=== PATIENT | male | born 1955 | race Caucasian/White ===

== ENCOUNTER 2017-07-30 17:16 | Inpatient (IN) | payer BC ==
[~2017-07-30] VITALS: Ht 393.7 cm; Wt 72.0 kg
[2017-07-30 18:09] LABS: HEMATOCRIT 38.8 % (38.0-50.0); HEMOGLOBIN 12.8 G/DL (12.5-16.6); MCH 28.3 PG (29.0-34.0); MCV 85.7 FL (86-99); PLATELET COUNT 359 K/uL (156-360); RBC DIS.WIDTH-CV 12.4 % (11.8-14.6); RBC DIS.WIDTH-SD 38.9 % (39-53); RED BLOOD COUNT 4.53 M/uL (4.00-5.50); WHITE BLOOD COUNT 19.1 K/uL (4.1-10.2)
[2017-07-30 18:15] LABS: CHLORIDE 104 mEq/L (99-109); POTASSIUM 4.1 mEq/L (3.7-5.4); SODIUM 142 mEq/L (136-147)
[2017-07-30 18:17] LABS: GLUCOSE 105 mg/dL (70-99)
[2017-07-30 18:21] LABS: CREATININE 0.7 mg/dL (0.6-1.3); GFR ESTIMATE (CALCULATED) > 59 mL/min/ (58.99-99999)
[2017-07-30 18:22] LABS: UREA NITROGEN (BUN) 12 mg/dL (9-23)
[2017-07-30 18:28] LABS: TROP-I INTERPRETATION NEGATIVE; TROPONIN-I 0.02 ng/mL (0.0-0.30)
[2017-07-30] MEDS ORDERED: AMOXICILLIN500 MG PO (20:11)
[2017-07-30] MEDS ORDERED: ATENOLOL25 MG PO (20:11)
[2017-07-30] MEDS ORDERED: CHERATUSSIN AC473 ML PO (20:12)
[2017-07-30] MEDS ORDERED: SYMBICORT60 INHALAT IH (20:13)
[2017-07-30] MEDS ORDERED: VENTOLIN HFA18 GM IH (20:15)
[2017-07-30] MEDS ORDERED: ASCORBIC ACID500 M3 PO (20:18)
[2017-07-30] MEDS ORDERED: ASPIRIN325 MG PO (20:19)
[2017-07-30 22:55] VITALS: BP 145/80
[2017-07-30 23:11] LABS: ALBUMIN 3.8 g/dL (3.2-4.8)
[2017-07-30 23:14] LABS: TOTAL PROTEIN 6.2 g/dL (6.4-8.3)
[2017-07-30 23:15] LABS: TOTAL BILIRUBIN 0.6 mg/dL (0.0-1.0)
[2017-07-30 23:16] LABS: ALKALINE PHOSPHATASE 97 IU/L (3-129)
[2017-07-30 23:19] LABS: AST (GOT) 18 IU/L (2-34); DIRECT BILIRUBIN 0.4 mg/dL (0.0-0.3)
[2017-07-30 23:20] LABS: ALT (GPT) 22 IU/L (3-49)
[2017-07-31] VITALS (7 sets, daily range): BP systolic 121–151; BP diastolic 79–84
[2017-07-31 06:32] LABS: BASOPHIL (%) 0.2 % (0-1); BASOPHIL COUNT 0.1 K/uL (0-0.1); EOSINOPHIL (%) 0.3 % (0-5); EOSINOPHIL COUNT 0.1 K/uL (0-0.3); HEMATOCRIT 37.1 % (38.0-50.0); HEMOGLOBIN 11.9 G/DL (12.5-16.6); LYMPHOCYTE (%) 7.9 % (15-42); LYMPHOCYTE COUNT 1.6 K/uL (1.0-2.8); MCH 27.5 PG (29.0-34.0); MCHC 32.1 G/DL (30.0-36.0); MCV 85.9 FL (86-99); MONOCYTE (%) 9.6 % (3-12); MONOCYTE COUNT 1.9 K/uL (0-0.8); NEUTROPHIL COUNT 16.2 K/uL (1.8-6.4); PLATELET COUNT 337 K/uL (156-360); RBC DIS.WIDTH-CV 12.5 % (11.8-14.6); RBC DIS.WIDTH-SD 39.2 % (39-53); RED BLOOD COUNT 4.32 M/uL (4.00-5.50); WHITE BLOOD COUNT 20.1 K/uL (4.1-10.2)
[2017-07-31 07:02] LABS: CHLORIDE 104 MEQ/L (99-109); CREATININE 0.7 MG/DL (0.6-1.3); GFR ESTIMATE (CALCULATED) > 59 mL/min/ (58.99-99999); GLUCOSE 98 mg/dL (70-99); POTASSIUM 3.9 MEQ/L (3.7-5.4); SODIUM 141 MEQ/L (136-147); UREA NITROGEN (BUN) 9 mg/dL (9-23)
[2017-08-01 06:08] LABS: BASOPHIL (%) 0.1 % (0-1); EOSINOPHIL (%) 0 % (0-5); HEMOGLOBIN 11.6 G/DL (12.5-16.6); LYMPHOCYTE (%) 6.4 % (15-42); LYMPHOCYTE COUNT 0.6 K/uL (1.0-2.8); MCH 27.3 PG (29.0-34.0); MCHC 32.2 G/DL (30.0-36.0); MCV 84.7 FL (86-99); MONOCYTE (%) 1.6 % (3-12); MONOCYTE COUNT 0.1 K/uL (0-0.8); NEUTROPHIL (%) 90.9 % (45-76); NEUTROPHIL COUNT 7.8 K/uL (1.8-6.4); PLATELET COUNT 311 K/uL (156-360); RBC DIS.WIDTH-CV 12.2 % (11.8-14.6); RED BLOOD COUNT 4.25 M/uL (4.00-5.50); WHITE BLOOD COUNT 8.6 K/uL (4.1-10.2)
[2017-08-01 06:20] LABS: CHLORIDE 107 MEQ/L (99-109); CREATININE 0.6 MG/DL (0.6-1.3); GFR ESTIMATE (CALCULATED) > 59 mL/min/ (58.99-99999); POTASSIUM 3.9 MEQ/L (3.7-5.4); SODIUM 144 MEQ/L (136-147); UREA NITROGEN (BUN) 14 mg/dL (9-23)
[2017-08-01 06:28] LABS: GLUCOSE 169 mg/dL (70-99)
[2017-08-01 07:20] VITALS: BP 151/80
[2017-08-01 15:45] VITALS: BP 129/79
[2017-08-01 23:47] VITALS: BP 147/80
[2017-08-02 07:40] VITALS: BP 134/83
[2017-08-02] MEDS ORDERED: CEFTRIAXONE2 G1 IV (08:17)
[2017-08-02] MEDS ORDERED: AZITHROMYCIN500 M1 PO (08:18)
[2017-08-02] MEDS ORDERED: BENZONATATE100 MG PO (08:19)
[2017-08-02] MEDS ORDERED: MEDROL DOSEPAK4 MG PO (08:19)
[2017-08-02 20:37] LABS: M. pneumoniae Ab, IgG <=0.90 (<=0.90); M. pneumoniae Ab, IgM 9 U/mL (<770)
== END 2017-08-02 11:51 | disposition home or self-care (01) | DRG 871 ==
LOC: EME 17:16 → 2EAST 21:21 → EDOF 21:21 → ENRESERV 21:26 → 2EAST 22:19 → ENPENDDIS 08-02 → 2EAST 08-02 11:51
PROVIDERS: Emergency Medicine; Hospitalist; Physician Assistant; Student in an Organized Health Care Education/Training Program
DX: A41.9 Sepsis, unspecified organism (principal); J12.9 Viral pneumonia, unspecified; J96.01 Acute respiratory failure with hypoxia; I10 Essential (primary) hypertension; R61 Generalized hyperhidrosis; D86.9 Sarcoidosis, unspecified; I89.8 Other specified noninfective disorders of lymphatic vessels and lymph nodes; Z82.49 Family history of ischemic heart disease and other diseases of the circulatory system; Z83.3 Family history of diabetes mellitus; Z87.01 Personal history of pneumonia (recurrent); Z79.51 Long term (current) use of inhaled steroids
CPT/HCPCS: 71045; 71260; 80048; 80076; 82164 90; 83605; 84484; 85025; 85027; 86738 90; 87040; 87070; 87205; 87449; 87502; 87641; 93005; 94640; 94799; 99202; 99281; 99285; J0295; J0456; J0696; J1644; J2543; J2920; J2930; J3370; J7030; J7050